=== PATIENT | male | born 1955 | race Caucasian/White ===

== ENCOUNTER 2020-11-15 11:05 | Emergency (ER) | payer MEDICARE, OTHER, SELFPAY ==
[2020-11-15] VITALS (8 sets, daily range): BP systolic 145–185; BP diastolic 67–101; PULSE 70–97; RESP 15–18; TEMP 36.3; O2SAT 96–98; BMI 28.7
--- NOTE | 2020-11-15 11:24 | ECG_ITS ---
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 Measurements Intervals Harrison Rate: 83 P: 59 NE: 188 QRS: 30 QRSD: 102 T: 38 QT: 330 QTc: 389 Interpretive Statements SINUS RHYTHM WITH SINUS ARRHYTHMIA INDETERMINATE AXIS INCOMPLETE RIGHT BUNDLE BRANCH BLOCK [90+ ms QRS DURATION, TERMINAL R IN V1/V2, 40+ ms S IN I/aVL/V4/V5/V6] No previous ECG available for comparison Electronically Signed On 11-15-2020 18:45:00 PHARMACY RESIDENT by Angelina Abdul M.D. [id number]
--- NOTE | 2020-11-15 11:24 | CT_ITS ---
WS: [id number] CT HEAD NONCONTRAST HISTORY: Symptoms of Acute Stroke TECHNIQUE: Contiguous axial imaging performed through the brain in 2.5 mm imaging. Bone and soft tiss ue windows. Sagittal and coronal reformats reviewed. All CT scans at [facility] use at le ast one of these dose optimization techniques: automated exposure control; mA and/or kV adjustment pe r patient size (includes targeted exams where dose is matched to clinical indication); or iterative r econstruction. DLP: 966.2 mGy.cm COMPARISON: None available. Large ill-defined mass centered near the LEFT splenium of the corpus callosum and extending into the posterior frontal and parietal region. Mass is ill-defined but surrounded by a large amount of infilt rating edema. Mass measures at least 3.0 x 2.6 cm and extends into the splenium of the corpus callosu m with extension across the midline. There is a large amount of edema extending towards the vertex wi th focal effacement on the LEFT sulci. Very slight bowing of the septum at the level of the ventricle s. There is also edema extending into the LEFT occipital lobe. No significant atrophy. No prior infarct identified. Ventricles: Normal size with no hydrocephalus. Paranasal sinuses: As visualized are clear. Mastoid air cells: Well pneumatized. Calvarium and scalp: Skull is intact with no soft tissue edema or swelling. CT/CT head wo con* [id number] IMPRESSION: 1. Ill-defined mass centered in the splenium of the LEFT corpus callosum with extension across the midline. Ill-defined mass measures at least 3.0 x 2.6 cm w ith a large amount of surrounding edema and sulcal effacement. No acute hemorrh age. Edema extends into the LEFT occipital white matter. Differential includes glioblastoma and lymphoma as the most likely etiologies. MRI brain with contras t recommended. 2. Very minimal bowing of the septum to the RIGHT. No hydrocephalus. Notified Adelso Neal DO at 11/15/2020 11:49 AM.
--- NOTE | 2020-11-15 11:27 | W.ED.DIZZY ---
HPI - Dizziness General: Chief Complaint: Dizziness Stated Complaint: Confused/ Dizzy Time Seen by Provider: 11/15/20 11:11 History of Present Illness: HPI Narrative: 65-year-old male presents the emergency room from his office. Patient works in his office as a dentist locally. He seemed to be a little confused had a hard time focusing on tasks as well as giving his patient's instructions and explaining what was going on. He is awake and alert answers questions appropriately and is able to answer detailed questions about current events time place and person but he does admit to having difficulty for the last 3 days with this as long as a little bit of gait disturbance. He denies chest pain. Denies headache denies difficulty vision or speaking or swallowing. MD elicited complaint: dizziness, lightheadedness and difficulty walking Onset (ago): day(s) (3) Timing: gradual onset Severity: moderate Description: lightheadedness, off-balance and difficulty walking Exacerbating factors: nothing Relieving factors: nothing Associated symptoms: Denies change in hearing, chest pain, chills, cough, diaphoresis, ear discharge, ear pressure, fevers/chills, headache(s), malaise, nausea, nasal congestion, palpitations, rash, short of breath, syncope, tinnitus, vomiting or weakness Associated neuro symptoms: Reports confusion; Deny diplopia, extremity weakness, facial numbness, facial weakness, gait changes, numbness in extremities or visual changes Review of Systems Const: Denies: chills, malaise or diaphoresis ENMT: Denies: ear discharge, change in hearing, tinnitus or nasal congestion Card: Denies: chest pain, palpitations or syncope GI: Denies: nausea or vomiting Neuro: Reports: confusion; Denies: headache(s) or numbness in extremities [facility] ED PFSH: Medical History No pertinent past medical history Surgical History History of tonsillectomy Family History Other CAD (coronary artery disease) Social History Smoking and tobacco status: current every day smoker Alcohol intake: current Alcohol intake frequency: holidays/special occasions only Physical Exam Const: COMMON NORMALS: no acute distress GENERAL APPEARANCE: cooperative and comfortable ORIENTATION/CONSCIOUSNESS: Yes awake, Yes oriented to person, Yes oriented to place and Yes oriented to time HENMT: COMMON NORMALS: normocephalic, atraumatic, hearing grossly normal bilaterally, external ears normal, EAC's normal, TM's normal bilaterally, Normal nasal mucous membranes and turbinates present, moist oral mucous membranes and oropharynx normal HEAD & SCALP: normocephalic and atraumatic NOSE: Normal nasal mucous membranes and turbinates present EXTERNAL EAR: Yes external ears normal EXTERNAL AUDITORY CANAL: EAC's normal TYMPANIC MEMBRANE: TM's normal bilaterally Eye: COMMON NORMALS: Equal, round and reactive pupils present, EOMs intact bilaterally, conjunctivae normal and no scleral icterus CONJUNCTIVA: Yes conjunctivae normal PUPIL: Yes Equal, round and reactive pupils present Neck/C-Spine: COMMON NORMALS: no JVD Resp: COMMON NORMALS: normal respiratory effort, No retractions, No use of accessory muscles and clear to auscultation bilaterally AUSCULTATION: clear to auscultation bilaterally Cardio: COMMON NORMALS: no JVD, regular rate, regular rhythm and No murmurs present (Cardio) RATE: regular rate RHYTHM: regular rhythm GI: COMMON NORMALS: Soft to palpation and No hepatosplenomegaly present AUSCULTATION: Yes normoactive bowel sounds PALPATION: Yes Soft to palpation, No Tenderness to palpation present (GI), No Guarding due to palpation present (GI) and Yes No hepatosplenomegaly present Extremity: COMMON NORMALS: normal to inspection, capillary refill normal, no clubbing, cyanosis or edema, no calf tenderness and no pedal edema Neuro: SENSORIUM/ORIENTATION: Yes oriented to person, Yes oriented to place and Yes oriented to time Skin: COMMON NORMALS: no rashes or lesions noted GENERAL SKIN EXAM: no rashes or lesions noted Course Vital Signs: Vital signs: Vital Signs Temperature 97.4 F L 11/15/20 11:09 Pulse Rate 94 11/15/20 15:00 Respiratory Rate 16 11/15/20 15:00 Blood Pressure 171/101 11/15/20 15:00 Pulse Oximetry 97 11/15/20 15:00 MDM - Dizziness MDM Narrative: Medical decision making narrative: CT shows a left-sided new brain tumor significant amount edema extending into the occipital region.'s CT note and images reviewed with radiology discussed with family recommend transfer to [place] for further evaluation and biopsy to confirm diagnosis patient understands family's and patient's questions answered arrangements made with Dr. Guadalupe will be the accepting on direct transfer. Lab Data: Labs: Lab Results 11/15/20 11/15/20 11/15/20 Range/Units 11:28 11:28 11:28 WBC 9.5 (4.0-10.0) 10^3/ uL RBC 4.79 (4.1-5.3) 10^6/u L Hgb 14.2 (11.5-15.3) g/dL Hct 42.9 (37.0-47.0) % MCV 89.6 (81-99) fL MCH 29.6 (28.0-34.0) pg MCHC 33.1 (30.0-36.0) g/dL RDW 12.9 (12.1-15.1) % Plt Count 344 (130-400) 10^3/c mm MPV 8.6 (7.4-10.4) fL Neut % (Auto) 69.5 % Lymph % (Auto) 21.2 % [place] % (Auto) 7.1 % Eos % (Auto) 1.5 % Baso % (Auto) 0.4 % Neut # (Auto) 6.63 (1.8-7.7) 10^3/u L Lymph # (Auto) 2.0 (0.8-4.8) 10^3/u L [place] # (Auto) 0.7 (0.2-0.9) 10^3/u L Eos # (Auto) 0.1 (0.0-0.8) 10^3/u L Baso # (Auto) 0.0 (0.0-0.1) 10^3/u L Nucleated RBC % (a uto) 0 % Nucleated RBCs # 0.0 /100WBC PT 14.00 (12.1-14.9) SECO NDS INR 1.04 (0.8-1.2) APTT 28.3 (23.9-36.7) SECO NDS Sodium 136 (136-145) mmol/L Potassium 4.0 (3.5-5.1) mmol/L Chloride 102 (98-107) mmol/L Carbon Dioxide 25 (22-29) mmol/L Anion Gap 13.0 (5-19) BUN 12 (8-23) mg/dL Creatinine 0.6 (0.5-0.9) mg/dL GFR Calculation 99.7 (90-130) mL/min Glucose 117 H (65-115) mg/dL Calculated Osmolal ity 283 L (285-295) mOsm/k g Calcium 9.1 (8.5-10.5) mg/dL Total Bilirubin 0.5 (0.15-1.2) mg/dL AST 15 (0-32) U/L ALT 17 (0-33) U/L Alkaline Phosphata se 102 (35-105) IU/L Total Protein 7.1 (6.6-8.7) g/dL Albumin 4.2 (3.5-5.2) g/dL Globulin 2.9 (1.3-4.6) g/dL Urine Color (Yellow) Urine Appearance (CLEAR) Urine pH (5-7) Ur Specific Gravit y (1.005-1.030) Urine Protein (Negative) Urine Glucose (UA) (Normal) Urine Ketones (Negative) Urine Blood (Negative) Urine Nitrate (Negative) Urine Bilirubin (Negative) Urine Urobilinogen (Negative) mg/dL Ur Leukocyte Cassandra ase (Negative) Urine RBC (0-2) /hpf Urine WBC (0-5) /hpf Ur Squamous Epith Cells (0-5) /hpf Amorphous Sediment Urine Bacteria (NONE) /hpf Urine Mucus /hpf Urine Opiates Scre en (Negative) ng/mL Ur Barbiturates Sc reen (Negative) ng/mL Ur Phencyclidine S crn (Negative) ng/mL Ur Amphetamines Sc reen (Negative) ng/mL U Benzodiazepines Scrn (Negative) ng/mL Urine Cocaine Scre en (Negative) ng/mL U Marijuana (THC) Screen (Negative) ng/mL 11/15/20 11/15/20 Range/Units 12:29 12:29 WBC (4.0-10.0) 10^3/ uL RBC (4.1-5.3) 10^6/u L Hgb (11.5-15.3) g/dL Hct (37.0-47.0) % MCV (81-99) fL MCH (28.0-34.0) pg MCHC (30.0-36.0) g/dL RDW (12.1-15.1) % Plt Count (130-400) 10^3/c mm MPV (7.4-10.4) fL Neut % (Auto) % Lymph % (Auto) % [place] % (Auto) % Eos % (Auto) % Baso % (Auto) % Neut # (Auto) (1.8-7.7) 10^3/u L Lymph # (Auto) (0.8-4.8) 10^3/u L [place] # (Auto) (0.2-0.9) 10^3/u L Eos # (Auto) (0.0-0.8) 10^3/u L Baso # (Auto) (0.0-0.1) 10^3/u L Nucleated RBC % (a uto) % Nucleated RBCs # /100WBC PT (12.1-14.9) SECO NDS INR (0.8-1.2) APTT (23.9-36.7) SECO NDS Sodium (136-145) mmol/L Potassium (3.5-5.1) mmol/L Chloride (98-107) mmol/L Carbon Dioxide (22-29) mmol/L Anion Gap (5-19) BUN (8-23) mg/dL Creatinine (0.5-0.9) mg/dL GFR Calculation (90-130) mL/min Glucose (65-115) mg/dL Calculated Osmolal ity (285-295) mOsm/k g Calcium (8.5-10.5) mg/dL Total Bilirubin (0.15-1.2) mg/dL AST (0-32) U/L ALT (0-33) U/L Alkaline Phosphata se (35-105) IU/L Total Protein (6.6-8.7) g/dL Albumin (3.5-5.2) g/dL Globulin (1.3-4.6) g/dL Urine Color Yellow (Yellow) Urine Appearance Clear (CLEAR) Urine pH 5 (5-7) Ur Specific Gravit y 1.025 (1.005-1.030) Urine Protein Neg (Negative) Urine Glucose (UA) Norm (Normal) Urine Ketones Negative (Negative) Urine Blood 2+ H (Negative) Urine Nitrate Negative (Negative) Urine Bilirubin Neg (Negative) Urine Urobilinogen Norm (Negative) mg/dL Ur Leukocyte Cassandra ase Negative (Negative) Urine RBC 5-10 H (0-2) /hpf Urine WBC 0-4 H (0-5) /hpf Ur Squamous Epith Cells 0-4 H (0-5) /hpf Amorphous Sediment Not Reportable Urine Bacteria Trace (NONE) /hpf Urine Mucus 4+ /hpf Urine Opiates Scre en Negative (Negative) ng/mL Ur Barbiturates Sc reen Negative (Negative) ng/mL Ur Phencyclidine S crn Negative (Negative) ng/mL Ur Amphetamines Sc reen Negative (Negative) ng/mL U Benzodiazepines Scrn Negative (Negative) ng/mL Urine Cocaine Scre en Negative (Negative) ng/mL U Marijuana (THC) Screen Negative (Negative) ng/mL Discharge Plan Discharge Patient Disposition: Xfer Short-Term Hosp Clinical Impression: Brain mass Condition: Stable Referrals: Tony Lofton MD [Primary Care Provider] - Coding Level of Care Code ED 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
[2020-11-15 11:33] LABS: Basophils % 0.4 %; Eosinophils # 0.1 10^3/uL (0.0-0.8); Eosinophils % 1.5 %; Hematocrit 42.9 % (37.0-47.0); Hemoglobin 14.2 g/dL (11.5-15.3); Lymphocytes % 21.2 %; Mean Corpuscular HGB Conc 33.1 g/dL (30.0-36.0); Mean Corpuscular Hemoglobin 29.6 pg (28.0-34.0); Mean Corpuscular Volume 89.6 fL (81-99); Mean Platelet Volume 8.6 fL (7.4-10.4); Monocytes # 0.7 10^3/uL (0.2-0.9); Monocytes % 7.1 %; Neutrophils # 6.63 10^3/uL (1.8-7.7); Neutrophils % 69.5 %; Nucleated Red Blood Cells % 0 %; Platelet Count 344 10^3/cmm (130-400); Red Blood Count 4.79 10^6/uL (4.1-5.3); Red Cell Distribution Width 12.9 % (12.1-15.1); White Blood Count 9.5 10^3/uL (4.0-10.0)
[2020-11-15 11:48] LABS: INR 1.04 (0.8-1.2)
[2020-11-15 11:49] LABS: Partial Thromboplastin Time 28.3 SECONDS (23.9-36.7)
[2020-11-15 12:05] LABS: Alanine Aminotransferase 17 U/L (0-33); Albumin Level 4.2 g/dL (3.5-5.2); Alkaline Phosphatase 102 IU/L (35-105); Aspartate Amino Transferase 15 U/L (0-32); Blood Urea Nitrogen 12 mg/dL (8-23); Calcium 9.1 mg/dL (8.5-10.5); Carbon Dioxide 25 mmol/L (22-29); Chloride 102 mmol/L (98-107); Globulin 2.9 g/dL (1.3-4.6); Glomerular Filtration Rate 99.7 mL/min (90-130); Glucose 117 mg/dL (65-115); Osmolality Calculated 283 mOsm/kg (285-295); Sodium 136 mmol/L (136-145); Total Bilirubin 0.5 mg/dL (0.15-1.2); Total Protein 7.1 g/dL (6.6-8.7)
[2020-11-15 13:24] LABS: Glucose Urine UA Norm (Normal); Ketones Urine Negative (Negative); Protein Urine Neg (Negative); Specific Gravity, Urine 1.025 (1.005-1.030); Urine Appearance Clear (CLEAR); Urine Color Yellow (Yellow); pH Urine 5 (5-7)
[2020-11-15 13:25] LABS: Add Urine Microscopic? YES; Bilirubin Urine Neg (Negative); Blood Urine 2+ (Negative); Leukocyte Esterase Urine Negative (Negative); Nitrate Urine Negative (Negative); Urobilinogen Urine Norm (Negative)
[2020-11-15 13:37] LABS: Add Urine Culture? No; Amphetamines Screen Urine Negative (Negative); Bacteria Urine TRACE /hpf; Barbiturates Screen Urine Negative (Negative); Benzodiazepines Screen Urine Negative (Negative); Cocaine Screen Urine Negative (Negative); Mucus Urine 4+ /hpf; Opiate Screen Urine Negative (Negative); PCP Screen Urine Negative (Negative); Squamous Epithelial Cell Urine 0-4 /hpf (0-5); THC Screen Urine Negative (Negative); WBC Urine 0-4 /hpf (0-5)
== END 2020-11-15 18:36 | disposition short-term general hospital (02) ==
PROVIDERS: Emergency Provider Family Medicine; PCP Family Medicine
DX: G93.9 Disorder of brain, unspecified (principal); F17.210 Nicotine dependence, cigarettes, uncomplicated
CPT/HCPCS: 12345; 70450; 80053; 80306; 81001; 85025; 85610; 85730; 93005; 99283; 99285

== ENCOUNTER 2020-12-20 08:53 | Outpatient (RCR) | payer MEDICARE, OTHER, SELFPAY | END 2020-12-21 23:00 | disposition home or self-care (01) | LOC: SOT 08:53 | PROVIDERS: PCP Family Medicine; Referring Provider Family Medicine; Visit Provider Family Medicine | DX: C71.9 Malignant neoplasm of brain, unspecified (principal) | CPT/HCPCS: 97165 ==

== ENCOUNTER 2020-12-21 05:32 | Outpatient (RCR) | payer MEDICARE, OTHER, SELFPAY ==
--- NOTE | 2020-12-20 09:24 | N.ONRAD NP_ITS ---
Radiation Oncology Consultation Patient Name: Igor Dunne DDS Date of : 1955 Date of Service: 12/20/2020 Attending Physician: Peter Carranza M.D. Igor Dunne DDS was seen in consultation this morning at the request of Deon López M.D. for consideration of post-operative cranial radiotherapy for the management of his recently diagnosed glioblastoma of the left di-trigonal region of the brain. He presented to [facility] Emergency Department with ataxia and confusion on November 15, 2020. A CT of the head (directly visualized in [facility]) revealed a large, ill-defined mass near the left splenium of the corpus callosum with extension into the posterior frontal lobe and parietal lobe. He was transferred to [facility] [place] [facility] in [place], [place] for further management. An MR of the brain performed preoperatively identified a 2.8 cm x 3.6 cm x 4.3 cm enhancing mass within the parietal white matter extending into the corpus callosum and the left ependymal lining of the left lateral ventricle with extensive surrounding vasogenic edema. A stereotactic biopsy completed on November 18, 2020 diagnosed neuroblastoma (IDH 1-WT). A left parieto-occipital craniotomy with Gliolan Blue 400 fluorescence was performed by Pereira M.D on November 23, 2020. Pathology confirmed (the report was personally reviewed) a glioblastoma WHO grade IV (IDH 1???WT and MGMT promoter methylation absent). Postoperative MRI (imaging personally requested and individually reviewed in [facility]) revealed a subtotal resection with curvilinear enhancement of the surgical margins and a small focus of ring enhancing lesion within the splenium of the corpus callosum. The patient presents for discussion pertaining to adjuvant radiotherapy. I reviewed the National Comprehensive Cancer Network Guidelines for the post-operative management glioblastoma that recommends in patients less than 70 years with a good performance status and unmethylated MGM T promoter status, radiotherapy, temozolomide (concurrent and adjuvant) with or without Optune (Tumor Treating [place] delivery system). I discussed the results of the EF???14 clinical trial that randomized patients with newly diagnosed glioblastoma to temozolomide or temozolomide and Optune. The results of the study concluded that overall survival and progression free survival were statistically improved with the addition of the alternating electric field therapy. I also addressed the EORTC-NCIC study that enrolled recently diagnosed patients with GBM (aged 70 years or less) to concomitant and adjuvant temozolomide versus radiotherapy alone. The outcome of this research demonstrated an overall survival benefit with the addition of temozolomide. I would recommend a 6 week course of radiotherapy. A computed tomographic radiotherapy planning scan in the treatment position will be performed to identify the clinical tumor volumes (preoperative tumor and postoperative cavity). The potential toxicities of cranial radiotherapy were reviewed. The patient has verbalized understanding would like to proceed as recommended. Signed by: Dr. Peter Carranza 12/20/2020 9:23:32 AM
--- NOTE | 2020-12-21 | CT_ITS ---
Radiation Therapy Planning CT images; total exam DLP: 624.11 mGy-cm MTDD
== END 2020-12-26 23:59 | disposition home or self-care (01) ==
LOC: ONCMED 05:32
PROVIDERS: PCP Family Medicine; Visit Provider Radiology Radiation Oncology
DX: Z51.0 Encounter for antineoplastic radiation therapy (principal); C71.9 Malignant neoplasm of brain, unspecified
CPT/HCPCS: 77300; 77301; 77334; 77338; 97165; 99205

== ENCOUNTER 2020-12-27 06:00 | Outpatient (RCR) | payer MEDICARE, OTHER, SELFPAY | END 2021-01-26 23:59 | disposition home or self-care (01) | LOC: SST 06:00 | PROVIDERS: PCP Family Medicine; Referring Provider Family Medicine; Visit Provider Family Medicine | DX: C71.9 Malignant neoplasm of brain, unspecified (principal) | CPT/HCPCS: 92507; 96125; 97129; 97130 ==

== ENCOUNTER 2021-01-26 05:38 | Outpatient (RCR) | payer MEDICARE, OTHER, SELFPAY ==
--- NOTE | 2020-12-27 12:38 | ONCRAD TMN_ITS ---
Radiation Oncology Weekly Treatment Management Patient: Igor Dunne MR#: [id number] : 1955 Attending Physician: Dr. Tee Bullock Date of Service: 12/27/2020 Referring Physician(s) : Ruiz Lucia Diagnosis: C71.9 - Malignant neoplasm of brain, unspecified, Diagnosed 11/18/2020 (Active) Radiotherapy to date: Course: GBM_2020, Treatment Site: GBM, Ref. ID: [id number], Energy: 6X, Dose/Fx (cGy): 200, #Fx: , Dose Correction (cGy): 0, Total Dose (cGy): 200, Start Date: 12/27/2020, Elapsed Days: 0 Reason for visit: The patient is being seen today as part of their regularly scheduled weekly on treatment visits to assess for acute toxicities from radiotherapy. Review of Systems: He just began treatment today. Now off DXM. He has had a funny feeling in his throat for a while andnow finishing a prescription of Nystatin with o symptomatic improvement. NO GARZA, N or V. Active. Short term memory and independent problem solving is improving. Vital Signs: Performed on 12/27/2020 10:46 AM BMI - 27.348 kg/m2 (high), Height - 70.00 in, Weight - 190.6 lbs, Temperature - 99.1 f, Pulse - 87, Respiration - 18, O2 Sat - 96 %, Pain - 0 and BP - 131/ 79 mm(hg). Physical Exam: oral cavity clear, no mucousitis or plaques seen. Imaging: Radiation therapy imaging related to accurate target localization (i.e. KV, MV and CBCT) was reviewed. Appropriate changes, if any, were made to ensure treatment accuracy. Plan: Good tolerance of treatment. Will continue as planned. Signed by: Dr. Tee Bullock 12/27/2020 12:37:24 PM
--- NOTE | 2021-01-05 09:18 | ONCRAD TMN_ITS ---
Radiation Oncology Treatment Management Note Patient Name: Igor Dunne DDS Date of : 1955 Date of Service: 01/05/2021 Attending Physician: Peter Carranza M.D. Igor Dunne DDS is a 65 year old white male diagnosed with a glioblastoma (IDH1 wild-type and MGMT methylation absent) of the left splenium. A left parieto-occipital craniotomy was performed on November 23, 2020. The patient has received 16 Gy of a prescribed 46 Otero with an IMRT plan using a step and shoot treatment technique. An additional 14 Gy will be administered subsequent to the initial plan to the post-operative cavity. Upon review of systems, he denied any neurological complaints. He described a fever and malaise with URI symptoms. On physical examination, the patient weighed 195 lbs. His temperature was 99.8 ???F with a blood pressure of 134/68 mmHg. His pulse was 97 bpm and his respiratory rate was 22. Cranial nerves were intact. There was no thrush in the oropharynx. Continue whole brain radiotherapy as planned. I will prescribe a Z-Dat for possible URI. A Covid-19 test will also be performed. Signed by: Dr. Peter Carranza 01/05/2021 9:17:08 AM
[2021-01-06 18:07] LABS: Coronavirus Test Green County Not Detected
--- NOTE | 2021-01-10 09:09 | ONCRAD TMN_ITS ---
Radiation Oncology Treatment Management Note Patient Name: Igor Dunne DDS Date of : 1955 Date of Service: 01/10/2021 Attending Physician: Peter Carranza M.D. Igor Dunne DDS is a 65 year old white male diagnosed with a glioblastoma (IDH1 wild-type and MGMT methylation absent) of the left splenium. A left parieto-occipital craniotomy was performed on November 23, 2020. The patient has received 22 Gy of a prescribed 46 Otero with an IMRT plan using a step and shoot treatment technique. An additional 14 Gy will be administered subsequent to the initial plan to the post-operative cavity. Upon review of systems, he denied any neurological complaints. He described a fever and malaise with URI symptoms. On physical examination, the patient weighed 192 lbs. His temperature was 97.7 ???F with a blood pressure of 126/61 mmHg. His pulse was 82 bpm and his respiratory rate was 18. There were no neurological changes. Continue cranial radiotherapy as prescribed. Signed by: Dr. Peter Carranza 01/10/2021 9:08:49 AM
--- NOTE | 2021-01-17 09:05 | ONCRAD TMN_ITS ---
Radiation Oncology Treatment Management Note Patient Name: Igor Dunne DDS Date of : 1955 Date of Service: 01/17/2021 Attending Physician: Peter Carranza M.D. Igor Dunne DDS is a 65 year old white male diagnosed with a glioblastoma (IDH1 wild-type and MGMT methylation absent) of the left splenium. A left parieto-occipital craniotomy was performed on November 23, 2020. The patient has received 32 Gy of a prescribed 46 Otero with an IMRT plan using a step and shoot treatment technique. An additional 14 Gy will be administered subsequent to the initial plan to the post-operative cavity. Upon review of systems, he denied any neurological complaints. On physical examination, the patient weighed 191 lbs. His temperature was 97.1 ???F with a blood pressure of 119/76 mmHg. His pulse was 85 bpm and his respiratory rate was 18. There were no neurological changes. Continue cranial radiotherapy as planned. Signed by: Dr. Peter Carranza 01/17/2021 9:04:33 AM
--- NOTE | 2021-01-24 09:31 | ONCRAD TMN_ITS ---
Radiation Oncology Treatment Management Note Patient Name: Igor Dunne DDS Date of : 1955 Date of Service: 01/24/2021 Attending Physician: Peter Carranza M.D. Igor Dunne DDS is a 65 year old white male diagnosed with a glioblastoma (IDH1 wild-type and MGMT methylation absent) of the left splenium. A left parieto-occipital craniotomy was performed on November 23, 2020. The patient has received 42 Gy of a prescribed 46 Otero with an IMRT plan using a step and shoot treatment technique. An additional 14 Gy will be administered subsequent to the initial plan to the post-operative cavity. Upon review of systems, he denied any neurological complaints. On physical examination, the patient weighed 194 lbs. His temperature was 98.6???F with a blood pressure of 130/76 mmHg. His pulse was 82 bpm and his respiratory rate was 18. There were no neurological changes. Continue cranial radiotherapy as prescribed. Signed by: Dr. Peter Carranza 01/24/2021 9:30:28 AM
== END 2021-01-26 23:59 | disposition home or self-care (01) ==
LOC: ONCMED 05:38
PROVIDERS: PCP Family Medicine; Visit Provider Radiology Radiation Oncology
DX: Z51.0 Encounter for antineoplastic radiation therapy (principal); C71.9 Malignant neoplasm of brain, unspecified; R50.9 Fever, unspecified; Z20.822 Contact with and (suspected) exposure to COVID-19
CPT/HCPCS: 77300; 77336; 77338; 77386; 87635

== ENCOUNTER 2021-01-27 06:00 | Outpatient (RCR) | payer MEDICARE, OTHER, SELFPAY | END 2021-02-25 23:59 | disposition home or self-care (01) | LOC: SST 06:00 | PROVIDERS: PCP Family Medicine; Referring Provider Family Medicine; Visit Provider Family Medicine | DX: C71.9 Malignant neoplasm of brain, unspecified (principal) | CPT/HCPCS: 92507; 97129; 97130 ==

== ENCOUNTER 2021-02-04 05:45 | Outpatient (RCR) | payer MEDICARE, OTHER, SELFPAY ==
--- NOTE | 2021-01-31 08:49 | ONCRAD EPV_ITS ---
Radiation Oncology Follow-Up Note Patient Name: Igor Dunne DDS Date of : 1955 Date of Service: 01/31/2021 Attending Physician: Peter Carranza M.D. Igor Dunne DDS is a 65 year old white male diagnosed with a glioblastoma (IDH1 wild-type and MGMT methylation absent) of the left splenium. A left parieto-occipital craniotomy was performed on November 23, 2020. The patient has received 52 Gy of a prescribed 60 Otero with an IMRT plan using a step and shoot treatment technique. Upon review of systems, he denied any neurological complaints. On physical examination, the patient weighed 196 lbs. His temperature was 96.9???F with a blood pressure of 131/72 mmHg. His pulse was 63 bpm and his respiratory rate was 18. There were no neurological changes. Continue cranial radiotherapy as planned. Signed by: Dr. Peter Carranza 01/31/2021 8:48:43 AM
--- NOTE | 2021-02-03 09:36 | XR_ITS ---
WS: [id number] Chest 2 views, 02/03/2021 Clinical Data: FEVER Comparison: Portable chest, 11/23/2020. Findings: No nodules, masses or effusions are seen. The heart is normal. The pulmonary vascularity is not increased. No pneumonia or pneumothorax is seen. The aortic arch and descending aorta show mild calcification and tortuosity. XR/XR chest 2V* [id number] Impression: Atherosclerosis.
[2021-02-03 09:56] LABS: Basophils % 0.4 %; Eosinophils # 0.2 10^3/uL (0.0-0.8); Eosinophils % 1.9 %; Hematocrit 44.3 % (42.0-52.0); Hemoglobin 14.4 g/dL (11.7-16.6); Lymphocytes # 1.8 10^3/uL (0.8-4.8); Lymphocytes % 20.3 %; Mean Corpuscular HGB Conc 32.5 g/dL (30.0-36.0); Mean Corpuscular Hemoglobin 29.8 pg (28.0-34.0); Mean Corpuscular Volume 91.5 fL (80-94); Mean Platelet Volume 9.2 fL (7.4-10.4); Monocytes # 0.9 10^3/uL (0.2-0.9); Monocytes % 9.7 %; Neutrophils # 6.09 10^3/uL (1.8-7.7); Neutrophils % 67.4 %; Nucleated Red Blood Cells % 0 %; Platelet Count 311 10^3/cmm (130-400); Red Blood Count 4.84 10^6/uL (4.1-5.3); Red Cell Distribution Width 14.6 % (12.1-15.1); White Blood Count 9.1 10^3/uL (4.0-10.0)
[2021-02-03 10:09] LABS: Bacteria Urine TRACE /hpf; Bilirubin Urine 1+ (Negative); Blood Urine 2+ (Negative); Calcium Oxalate Crystals Urine 0-4 /hpf; Glucose Urine UA Norm (Normal); Hyaline Casts Urine 0-4 /lpf; Ketones Urine Negative (Negative); Leukocyte Esterase Urine Negative (Negative); Mucus Urine 1+ /hpf; Nitrate Urine Negative (Negative); Protein Urine 1+ (Negative); RBC Urine 0-4 /hpf (0-2); Specific Gravity, Urine 1.025 (1.005-1.030); Squamous Epithelial Cell Urine 0-4 /hpf (0-5); Urine Appearance Cloudy (CLEAR); Urine Color Yellow (Yellow); Urobilinogen Urine 4 mg/dL (Negative); WBC Urine 0-4 /hpf (0-5); pH Urine 5 (5-7)
[2021-02-03 10:12] LABS: Alanine Aminotransferase 11 U/L (0-41); Albumin Level 4.4 g/dL (3.5-5.2); Alkaline Phosphatase 82 IU/L (40-130); Anion Gap 14.7 (5-19); Aspartate Amino Transferase 13 U/L (0-40); Blood Urea Nitrogen 9 mg/dL (8-23); Calcium 9.3 mg/dL (8.5-10.5); Carbon Dioxide 26 mmol/L (22-29); Chloride 99 mmol/L (98-107); Globulin 2.4 g/dL (1.3-4.6); Glomerular Filtration Rate 96.4 mL/min (90-130); Glucose 111 mg/dL (65-115); Osmolality Calculated 281 mOsm/kg (285-295); Potassium 3.7 mmol/L (3.5-5.1); Sodium 136 mmol/L (136-145); Total Bilirubin 0.9 mg/dL (0.15-1.2); Total Protein 6.8 g/dL (6.6-8.7)
== END 2021-02-25 23:59 | disposition home or self-care (01) ==
LOC: ONCMED 05:45
PROVIDERS: PCP Family Medicine; Visit Provider Radiology Radiation Oncology
DX: Z51.0 Encounter for antineoplastic radiation therapy (principal); C71.9 Malignant neoplasm of brain, unspecified
CPT/HCPCS: 36415; 71046; 77014; 77336; 77386; 80053; 81001; 85025; 87040

== ENCOUNTER 2021-03-26 11:33 | Outpatient (CLI) | payer MEDICARE, OTHER, SELFPAY ==
--- NOTE | 2021-03-26 11:55 | XRR_ITS ---
PROCEDURE INFORMATION: Exam: XR Chest Exam date and time: 03/26/2021 1:46 PM Age: 65 years old Clinical indication: Check for pneumonia TECHNIQUE: Imaging protocol: XR of the chest. Views: 2 views. COMPARISON: CR XR chest 2V* [id number] 02/03/2021 9:34 AM FINDINGS: Lungs: No pulmonary consolidation. Pleural spaces: No pleural effusion. No pneumothorax. Heart/Mediastinum: The cardiac silhouette is unchanged. No gross evidence of pneumomediastinum. Bones/joints: No gross fracture. XR/XR chest 2V* [id number] IMPRESSION: No acute cardiopulmonary abnormality identified.
[2021-03-26 12:32] LABS: Bilirubin Urine 1+ (Negative); Blood Urine 2+ (Negative); Glucose Urine UA Norm (Normal); Ketones Urine Negative (Negative); Leukocyte Esterase Urine Negative (Negative); Nitrate Urine Negative (Negative); Protein Urine Neg (Negative); Specific Gravity, Urine 1.025 (1.005-1.030); Urine Appearance SL Hazy (CLEAR); Urine Color Yellow (Yellow); Urobilinogen Urine 4 mg/dL (Negative); pH Urine 5 (5-7)
[2021-03-26 12:33] LABS: Bacteria Urine TRACE /hpf; Mucus Urine 2+ /hpf
[2021-03-26 12:34] LABS: Add Urine Culture? No
== END 2021-03-26 11:34 | disposition home or self-care (01) ==
PROVIDERS: PCP Family Medicine; Visit Provider Family Medicine
DX: J18.9 Pneumonia, unspecified organism (principal); R50.9 Fever, unspecified
CPT/HCPCS: 36415; 71046; 81001; 87040

== ENCOUNTER 2021-05-27 10:47 | Outpatient (CLI) | payer MEDICARE, OTHER, SELFPAY ==
--- NOTE | 2021-05-27 10:54 | MR_ITS ---
WS: [id number] MRI HEAD WITH CONTRAST TECHNIQUE: Sagittal T1, T2 axial, T2 axial FLAIR, axial susceptibility weighted imaging, axial diffus ion weighted images, and coronal T2 images were obtained. Pre and post-T1 axial and post T1 coronal i mages. ADC and FSPGR images. CLINICAL INFORMATION: GLIOBLASTOMA MULTIFORME COMPARISON: MRIs October [address] December 10, 2020 and October 2020. FINDINGS: No evidence of restricted diffusion to suggest acute ischemia. Prior postoperative changes left parie sissy occipital craniotomy with resection cavity in the left parietal lobe extending to the posterior l ateral ventricle. T1 hyperintensity consistent with laminar necrosis about the left atrial trigone wi th associated restricted diffusion and slight peripheral enhancement. This area measures approximately 2.1 x 1.2 x 1.9 cm with mild mass effect on the underlying atrium. Nonenhancing T2 signal abnormality about the left posterior lateral ventricle and left atrial trigone has improved since the immediate postoperative examination. T2 signal abnormality involves the spleni um of the corpus callosum extending across midline with expansion of the splenium. In addition, there is focal enhancement involving the splenium of the corpus callosum measuring 8 x 7 mm suspicious for active disease. This is best evaluated on the coronal and sagittal imaging. Normal posterior fossa. Normal vascular flow voids at the skull base. Paranasal sinuses are well aera kamarn. Mastoid air cells are well aerated. No hydrocephalus. No significant hemosiderin. Moderate symme tric atrophy temporal lobes and hippocampal formation. Normal optic chiasm and pituitary infundibulum . No other abnormal foci of enhancement. MR/MR head wo/w con [id number] IMPRESSION: 1. Prior postoperative changes left parietal occipital craniotomy for GBM rese ction. 2. Expected postoperative changes in the left parietal lobe with moderate none nhancing T2 signal abnormality about the left lateral ventricle and left atrium appears improved from the immediate postoperative study. 3. Progressed nonenhancing T2 signal abnormality extends across midline in the splenium of the corpus callosum. 4. Peripherally enhancing tissue about the left atrial trigone with T1 hyperin tense laminar necrosis and peripheral restricted diffusion.This is nonspecific but differential considerations include radiation necrosis or treatment-related changes versus less likely residual/recurrent disease. This can be further ela luated with MR perfusion and/or short interval follow-up. (MR perfusion not ailyn ilable at [facility]). 5. Additional heterogeneous enhancement involving the splenium of the corpus c allosum with mild expansion suspicious for a small focus focus of active diseas e measuring 8 x 7 mm. This is best seen on the coronal and sagittal imaging. 6. Mild small vessel changes. Moderate parenchymal volume loss. 7. No hydrocephalus.
== END 2021-05-27 10:48 | disposition home or self-care (01) ==
LOC: RADSHAW 10:51
PROVIDERS: PCP Family Medicine; Visit Provider Internal Medicine Medical Oncology
DX: C71.9 Malignant neoplasm of brain, unspecified (principal)
CPT/HCPCS: 70553; A9577

== ENCOUNTER 2021-07-24 00:45 | Emergency (ER) | payer MEDICARE, OTHER, SELFPAY ==
[2021-07-24] VITALS (13 sets, daily range): BP systolic 132–188; BP diastolic 56–91; PULSE 68–96; RESP 8–95; TEMP 36.4–36.8; O2SAT 93–99; BMI 26.5
--- NOTE | 2021-07-24 00:50 | CTR_ITS ---
PROCEDURE INFORMATION: Exam: CT Head Without Contrast Exam date and time: 07/24/2021 12:50 AM Age: 66 years old Clinical indication: Weakness, extremity and weakness, facial; Right; Additional info: R side weakness HX of tumor TECHNIQUE: Imaging protocol: Computed tomography of the head without contrast. Radiation optimization: All CT scans at this facility use at least one of these dose optimization techniques: automated exposure control; mA and/or kV adjustment per patient size (includes targeted exams where dose is matched to clinical indication); or iterative reconstruction. Other technique: STROKE PROTOCOL was implemented. COMPARISON: MR head wo/w con [id number] 05/27/2021 11:[address] Brain 12/10/2020 12:45 PM RADIATION DOSE METRICS: Total DLP (mGy-cm): 2090.93 FINDINGS: Brain: As before, prominent white matter edema in the left posterior parietal region, compatible with known neoplasm. Area of more prominent focal low-attenuation adjacent to the trigone of the left lateral ventricle, measuring about 20 x 16 mm. This is similar in size to the recent MRI exam. The appearance is nonspecific. Residual/recurrent neoplasm is not excluded. However, follow-up MRI would be more specific for determination of etiology and exact comparison. Probably no significant change in amount of associated mass effect. No significant midline shift. No acute intracranial hemorrhage. There is mild decreased attenuation in the periventricular white matter, likely from microvascular disease. No definite acute infarct by CT. MRI could be more sensitive/specific for detection, as clinically directed. Cerebral ventricles: Ventricle size is normal for age. Paranasal sinuses: Included paranasal sinuses are essentially clear. Mastoid air cells: No significant acute finding. Vasculature: Vascular calcifications in the internal carotid and vertebral basilar systems. Bones/joints: No definite acute skull fracture. Prior left craniotomy. CT/CT head wo con* [id number] IMPRESSION: 1. As before, prominent white matter edema in the left posterior parietal region. 2. 20 x 16 mm area of more prominent focal low-attenuation adjacent to the trigone of the left lateral ventricle, similar in size to the recent MRI exam. Please see above discussion. 3. Probably no significant change in amount of associated mass effect. No significant midline shift. 4. No acute intracranial hemorrhage . 5. Changes of microvascular disease. 6. No definite acute infarct by CT, see above. 7. Other findings discussed above. ASSESSMENT: ASPECTS ([place] Stroke Program Early CT Score) is 10. Radiation Dose CTDIVOL = (mGy): DLP = 2090.93 (mGy-cm)
--- NOTE | 2021-07-24 00:59 | ECG_ITS ---
[facility] Test Date: 2021-07-24 Pat Name: Igor Dunne Department: Room: Gender: Male Investment Banker: : 1955 Requested By: Neel Mistry Order Number: [id number] Carl MD: Sahil Grubbs M.D. Measurements Intervals [place] Rate: 73 P: 61 MN: 199 QRS: 93 QRSD: 106 T: 67 QT: 344 QTc: 381 Interpretive Statements SINUS RHYTHM WITH SINUS ARRHYTHMIA BORDERLINE RIGHT AXIS DEVIATION [QRS AXIS > 90] INCOMPLETE RIGHT BUNDLE BRANCH BLOCK [90+ ms QRS DURATION, TERMINAL R IN V1/V2, 40+ ms S IN I/aVL/V4/V5/V6] Compared to ECG 11/15/2020 13:10:13 Indeterminate axis no longer present Electronically Signed On 07-24-2021 21:43:10 CDT by Sahil Grubbs M.D. [id number]
[2021-07-24] MEDS: LORazepam 2 mg/mL INJ 1 mL 1 MG IVP ×2 (01:04→01:23)
--- NOTE | 2021-07-24 01:05 | W.ED.WEAKNES ---
HPI - Weakness General: Chief complaint: Neuro Symptoms/Deficit Stated complaint: POSSIBLE STROKE History of Present Illness: HPI Narrative: 66-year-old male with known left-sided glioblastoma multiforme. He presents with a last known well time of 9 PM or so. His son reports that he lost control of his bladder around 50 minutes prior to arrival, and had right-sided weakness that is significant on waking. He is also having problems with his speech. MD Complaint: focal weakness and numbness Onset (ago): hour(s) Duration: constant Location: RUE and RLE Migration: none Severity: moderate Quality: numbness Relieving factors: none Exacerbating factors: none Context: history of similar Associated symptoms: Reports confusion; Denies chest pain, short of breath or vomiting Review of Systems Eyes: Denies: change in vision Card: Denies: chest pain Resp: Denies: dyspnea, productive cough or non-productive cough GI: Denies: vomiting Neuro: Reports: confusion PFSH ED PFSH: Medical History No pertinent past medical history Surgical History History of tonsillectomy Family History Other CAD (coronary artery disease) Social History (System 04/19/21 @ 13:35 by Aimee Navarrete) Smoking and tobacco status: former smoker Alcohol intake: never Special anna needs: No Physical Exam Const: EXAM LIMITATIONS: altered mental status GENERAL APPEARANCE: cooperative, ill appearing and frail appearing ORIENTATION/CONSCIOUSNESS: Yes awake and Yes oriented to person HENMT: COMMON NORMALS: normocephalic and atraumatic HEAD & SCALP: normocephalic and atraumatic Eye: COMMON NORMALS: Equal, round and reactive pupils present and EOMs intact bilaterally PUPIL: Yes Equal, round and reactive pupils present Chest: COMMONS NORMALS: normal inspection of the chest Resp: COMMON NORMALS: normal respiratory effort, No use of accessory muscles and clear to auscultation bilaterally AUSCULTATION: clear to auscultation bilaterally Cardio: COMMON NORMALS: regular rate and regular rhythm RATE: regular rate RHYTHM: regular rhythm GI: COMMON NORMALS: Normal to inspection, nondistended, normoactive bowel sounds present and Soft to palpation PALPATION: Yes Soft to palpation Neuro: SENSORIUM/ORIENTATION: Yes oriented to person CRANIAL NERVES: Yes CN VII (facial) (Normal) COORDINATION/BALANCE: No [id number] test normal and No pqwu-[id number]-[id number] test normal SPEECH: abnormal speech and expressive aphasia COORDINATION: [id number]-[id number] test abnormal and htrk-ki-[id number] test abnormal Course ED course: NIH score calculated is a 10. The patient is not a TPA candidate with known glioblastoma Consultations: Consultation #1: Andres, neurology [facility] Time: 01:50 Consultation #2: Anjum, Oncology [facility] Time: 02:12 Vital Signs: Vital signs: Vital Signs Temperature 98.2 F 07/24/21 00:58 Pulse Rate 81 07/24/21 05:00 Respiratory Rate 14 07/24/21 05:00 Blood Pressure 139/61 07/24/21 05:00 Pulse Oximetry 98 07/24/21 05:00 MDM - Weakness MDM Narrative: Medical decision making narrative: 66-year-old male with right-sided weakness, expressive aphasia, sensory change, neglect, and tonic-clonic movements on the right, mainly lower extremity. CT reveals not a significant change from prior MRI dated 05/27 per our records. His white blood cell count is 12. His other laboratory is benign so far. His EKG shows a sinus rhythm with arrhythmia with a rate of 66. The patient was initially hypertensive, blood pressure now 135/63 status post labetalol, and Ativan for the seizure. He has been given 2 mg of Ativan, 500 mg of Keppra for the tonic-clonic movements on the right. I spoke with neurology at [facility], where this patient gets his oncology care and neurosurgical care. Recommendations were another gram of Keppra as well as 4 mg of dexamethasone, which are being given. The patient is resting comfortably after Ativan, and we have noticed a significant decrease in the tonic-clonic movements already. We have a call out to oncology now for admission. Have gotten no oncology service here this weekend, no neurosurgical services, and no inpatient neurology most of the time. Helicopter transport has already declined due to weather in [place] should they have a bed. Spoke with oncology. They have accepted the patient, and beds are available. The patient remained stable. Heart rate 70, blood pressure 139/70, oxygenation 97% on 2 L nasal cannula after Ativan. Respirations are 20 Lab Data: Labs: Lab Results 07/24/21 07/24/21 07/24/21 01:00 01:00 01:00 WBC 12.2 10^3/uL H 10 ^3/uL (4.0-10.0) RBC 5.08 10^6/uL 10^6 /uL (4.1-5.3) Hgb 16.2 g/dL g/dL (11.7-16.6) Hct 48.4 % % (42.0-52.0) MCV 95.3 fl H fl (80-94) MCH 31.9 pg pg (28.0-34.0) MCHC 33.5 g/dL g/dL (30.0-36.0) RDW 13.2 % % (12.1-15.1) Plt Count 214 10^3/cmm 10^3 /cmm (130-400) MPV 9.2 fL fL (7.4-10.4) Neut % (Auto) 63.3 % % Lymph % (Auto) 24.8 % % [place] % (Auto) 9.6 % % Eos % (Auto) 1.2 % % Baso % (Auto) 0.4 % % Neut # (Auto) 7.70 10^3/uL 10^3 /uL (1.8-7.7) Lymph # (Auto) 3.0 10^3/uL 10^3/ uL (0.8-4.8) [place] # (Auto) 1.2 10^3/uL H 10^ 3/uL (0.2-0.9) Eos # (Auto) 0.2 10^3/uL 10^3/ uL (0.0-0.8) Baso # (Auto) 0.1 10^3/uL 10^3/ uL (0.0-0.1) Nucleated RBC % (a uto) 0 % % Nucleated RBCs # 0.0 /100WBC /100W BC PT 13.50 SECONDS SEC ONDS (12.1-14.9) INR 1.00 (0.8-1.2) APTT 24.2 SECONDS SECO NDS (23.9-36.7) Sodium 137 mmol/L mmol/L (136-145) Potassium 3.9 mmol/L mmol/L (3.5-5.1) Chloride 98 mmol/L mmol/L (98-107) Carbon Dioxide 30 mmol/L H mmol/ L (22-29) Anion Gap 12.9 (5-19) BUN 15 mg/dL mg/dL (8-23) Creatinine 0.7 mg/dL mg/dL (0.7-1.2) GFR Calculation 112.1 mL/min mL/m in (90-130) Glucose 103 mg/dL mg/dL (65-115) POC Glucose Calculated Osmolal ity 285 mOsm/kg mOsm/ kg (285-295) Calcium 9.3 mg/dL mg/dL (8.5-10.5) Total Bilirubin 0.3 mg/dL mg/dL (0.15-1.2) AST 13 U/L U/L (0-40) ALT 24 U/L U/L (0-41) Alkaline Phosphata se 70 IU/L IU/L (40-130) Total Protein 6.4 g/dL L g/dL (6.6-8.7) Albumin 4.2 g/dL g/dL (3.5-5.2) Globulin 2.2 g/dL g/dL (1.3-4.6) Urine Color Urine Appearance Urine pH Ur Specific Gravit y Urine Protein Urine Glucose (UA) Urine Ketones Urine Blood Urine Nitrate Urine Bilirubin Urine Urobilinogen Ur Leukocyte Cassandra ase Urine RBC Urine WBC Ur Squamous Epith Cells Amorphous Sediment Urine Bacteria SARS-CoV-2 Ag (Rap id) 07/24/21 07/24/21 07/24/21 01:02 02:35 02:40 WBC RBC Hgb Hct MCV MCH MCHC RDW Plt Count MPV Neut % (Auto) Lymph % (Auto) [place] % (Auto) Eos % (Auto) Baso % (Auto) Neut # (Auto) Lymph # (Auto) [place] # (Auto) Eos # (Auto) Baso # (Auto) Nucleated RBC % (a uto) Nucleated RBCs # PT INR APTT Sodium Potassium Chloride Carbon Dioxide Anion Gap BUN Creatinine GFR Calculation Glucose POC Glucose 104 mg/dL mg/dL (70-110) Calculated Osmolal ity Calcium Total Bilirubin AST ALT Alkaline Phosphata se Total Protein Albumin Globulin Urine Color Yellow (Yellow) Urine Appearance Sl hazy (CLEAR) Urine pH 6.5 (5-7) Ur Specific Gravit y 1.015 (1.005-1.030) Urine Protein Neg (Negative) Urine Glucose (UA) Norm (Normal) Urine Ketones Negative (Negative) Urine Blood Neg (Negative) Urine Nitrate Negative (Negative) Urine Bilirubin Neg (Negative) Urine Urobilinogen Norm mg/dL mg/dL (Negative) Ur Leukocyte Cassandra ase Negative (Negative) Urine RBC 0-4 /hpf H /hpf (0-2) Urine WBC 0-4 /hpf H /hpf (0-5) Ur Squamous Epith Cells 0-4 /hpf H /hpf (0-5) Amorphous Sediment 2+ /hpf /hpf Urine Bacteria Trace /hpf /hpf (NONE) SARS-CoV-2 Ag (Rap id) Negative (Negative) Critical Care Time Critical Care Time: Critical Care Time: Yes Total Critical Care Time: 40 Attestation: This case had a high probability of a clinically significant, sudden, or life threatening deterioration of this patient's condition which required my full and direct attention, intervention and personal management. Discharge Plan Discharge Prescriptions: No Action dexamethasone 2 mg Tablet 2 mg PO DAILY RF: 0 Tylenol 325 mg Tablet 325 mg PO QID PRN (Reason: Pain) RF: 0 Zofran 4 mg Tablet 4 mg PO Q6H PRN (Reason: Nausea) RF: 0 lorazepam 0.5 mg Tablet 0.5 mg PO TID PRN (Reason: Seizure Activity) RF: 0 Keppra 750 mg Tablet 750 mg PO BID RF: 0 Coding Level of Care Code ED Mobile Equipment Operator for Chg Fwd Exam Comprehensive
[2021-07-24 01:13] LABS: Basophils # 0.1 10^3/uL (0.0-0.1); Basophils % 0.4 %; Eosinophils # 0.2 10^3/uL (0.0-0.8); Eosinophils % 1.2 %; Hematocrit 48.4 % (42.0-52.0); Hemoglobin 16.2 g/dL (11.7-16.6); Lymphocytes % 24.8 %; Mean Corpuscular HGB Conc 33.5 g/dL (30.0-36.0); Mean Corpuscular Hemoglobin 31.9 pg (28.0-34.0); Mean Corpuscular Volume 95.3 fl (80-94); Mean Platelet Volume 9.2 fL (7.4-10.4); Monocytes # 1.2 10^3/uL (0.2-0.9); Monocytes % 9.6 %; Neutrophils % 63.3 %; Nucleated Red Blood Cells % 0 %; Platelet Count 214 10^3/cmm (130-400); Red Blood Count 5.08 10^6/uL (4.1-5.3); Red Cell Distribution Width 13.2 % (12.1-15.1); White Blood Count 12.2 10^3/uL (4.0-10.0)
[2021-07-24 01:18] LABS: Glucose Point of Care 104 mg/dL (70-110)
[2021-07-24 01:22] LABS: Partial Thromboplastin Time 24.2 SECONDS (23.9-36.7)
[2021-07-24 01:30] LABS: Alanine Aminotransferase 24 U/L (0-41); Albumin Level 4.2 g/dL (3.5-5.2); Alkaline Phosphatase 70 IU/L (40-130); Anion Gap 12.9 (5-19); Aspartate Amino Transferase 13 U/L (0-40); Blood Urea Nitrogen 15 mg/dL (8-23); Calcium 9.3 mg/dL (8.5-10.5); Carbon Dioxide 30 mmol/L (22-29); Chloride 98 mmol/L (98-107); Globulin 2.2 g/dL (1.3-4.6); Glomerular Filtration Rate 112.1 mL/min (90-130); Glucose 103 mg/dL (65-115); Osmolality Calculated 285 mOsm/kg (285-295); Potassium 3.9 mmol/L (3.5-5.1); Sodium 137 mmol/L (136-145); Total Bilirubin 0.3 mg/dL (0.15-1.2); Total Protein 6.4 g/dL (6.6-8.7)
[2021-07-24] MEDS: labetalol 5 mg/mL SDV 20mL 20 MG IVP (01:41)
--- NOTE | 2021-07-24 01:52 | PC.NURSE ---
pt exam done by Dr. Sweet.
[2021-07-24] MEDS: dexamethasone 4 mg/mL INJ IVP (02:27)
--- NOTE | 2021-07-24 02:45 | PC.NURSE ---
16fr kramer catheter inserted, per MD verbal order. Sterile technique performed. Kramer bag patent and draining to gravity. Secured to leg by stat lock. Pt tolerated well. Urine specimen sent to lab.
[2021-07-24 03:08] LABS: Add Urine Microscopic? YES; Bilirubin Urine Neg (Negative); Blood Urine Neg (Negative); Glucose Urine UA Norm (Normal); Ketones Urine Negative (Negative); Leukocyte Esterase Urine Negative (Negative); Nitrate Urine Negative (Negative); Protein Urine Neg (Negative); Specific Gravity, Urine 1.015 (1.005-1.030); Urine Appearance SL Hazy (CLEAR); Urine Color Yellow (Yellow); Urobilinogen Urine Norm (Negative); pH Urine 6.5 (5-7)
[2021-07-24 03:09] LABS: Amorphous Sediment Urine 2+ /hpf; Bacteria Urine TRACE /hpf; RBC Urine 0-4 /hpf (0-2); Squamous Epithelial Cell Urine 0-4 /hpf (0-5); WBC Urine 0-4 /hpf (0-5)
[2021-07-24 03:10] LABS: Add Urine Culture? No
[2021-07-24 03:20] LABS: SARS Covid-2 Antigen Negative (Negative)
--- NOTE | 2021-07-24 04:27 | PC.NURSE ---
bed assigned and transport called at 0406. transport ([facility] declined transport until 0700 pt family updated and family decided to go home at this time.
--- NOTE | 2021-07-24 07:11 | PC.NURSE ---
called for dayshift nurse receiving pt at 0700. nurse to recieve report is MARYCRUZ Reina. name and number given to facility to be able to call when shift report is done.
== END 2021-07-24 07:52 ==
LOC: ER 00:52
PROVIDERS: Emergency Provider Emergency Medicine; PCP Family Medicine
DX: R53.1 Weakness (principal); R20.0 Anesthesia of skin; Z87.891 Personal history of nicotine dependence; Z20.822 Contact with and (suspected) exposure to COVID-19
CPT/HCPCS: 36416; 51702; 70450; 80053; 81001; 82962; 85025; 85610; 85730; 87426; 93005; 96365; 96366; 96375; 96376; 99291; 99292; J1100; J1953; J2060; J3490